=== PATIENT | female | born 1990 | race Caucasian/White ===

== ENCOUNTER 2017-10-16 13:54 | Emergency (ER) | payer BC, MEDICAID ==
--- NOTE | 2017-10-16 17:24 | ED ---
- HPI Summary HPI Summary: 27F LMP 6/5 presents with vaginal spotting and cramping today. She states that she has been having intermittent abd pain in the past week. She states that abd pain is getting worse. She noticed some spotting. She denies any abnormal vaginal discharge. No pain urination. No fevers. No nausea vomiting diarrhea or constipation. She is a history of 2 previous miscarriages. She is not able to get in with her OB till Sunday. She has no medical conditions. - History of Current Complaint Chief Complaint: EDOBProblems Stated Complaint: 10 WKS PREG/VAGINAL BLEEDING Time Seen by Provider: 10/16/17 17:07 Pain Intensity: 3 - Allergies/Home Medications Allergies/Adverse Reactions: Allergies Allergy/AdvReac Type Severity Reaction Status Date / Time Latex [Latex] Allergy Mild rash with Verified 07/18/12 13:09 contact per pt PMH/Surg Hx/FS Hx/Imm Hx Endocrine/Hematology History: Denies: Hx Diabetes, Hx Thyroid Disease Cardiovascular History: Denies: Hx Hypertension, Hx Pacemaker/ICD Respiratory History: Reports: Other Respiratory Problems/Disorders - sob started 07/17/12 had albuterol treatment at [facility] Denies: Hx Asthma, Hx Chronic Obstructive Pulmonary Disease (COPD) GI History: Denies: Hx Ulcer History: Denies: Hx Dialysis, Hx Renal Disease Sensory History: Denies: Hx Hearing Aid Psychiatric History: Denies: Hx Panic Disorder Infectious Disease History: No Infectious Disease History: Denies: Hx Hepatitis, Hx Human Immunodeficiency Virus (HIV), Traveled Outside the [place] in Last 30 Days - Family History Known Family History: Negative: Blood Disorder - Social History Alcohol Use: Daily Substance Use Type: Reports: None Smoking Status (MU): Light Every Day Tobacco Smoker Review of Systems Negative: Fever Negative: Chest Pain Negative: Shortness Of Breath Positive: Abdominal Pain, Other - vaginal discharge All Other Systems Reviewed And Are Negative: Yes Physical Exam - Physical Exam Triage Information Reviewed: Yes Vital Signs Reviewed: Yes Appearance: Positive: Well-Appearing Skin: Positive: Warm, Dry Head/Face: Positive: Normal Head/Face Inspection Eyes: Positive: Normal, Conjunctiva Clear ENT: Positive: Pharynx normal Respiratory/Lung Sounds: Positive: Clear to Auscultation, Breath Sounds Present Cardiovascular: Positive: Normal, RRR Abdomen Description: Positive: Nontender, Soft Bowel Sounds: Positive: Present Pelvic Exam: External Exam Normal, Speculum Exam Normal, Other - redness around cervix, os closed Musculoskeletal: Positive: Normal Neurological: Positive: Normal Psychiatric: Positive: Normal Diagnostics - Vital Signs Vital Signs Temp Pulse Resp BP Pulse Ox 10/16/17 16:33 97.9 F 74 16 102/64 100 10/16/17 14:01 97.9 F 90 16 125/83 98 - Laboratory Result Diagrams: 10/16/17 17:17 10/16/17 17:17 Lab Statement: Any lab studies that have been ordered have been reviewed, and results considered in the medical decision making process. - Ultrasound No standard instances Ultrasound Interpretation: Positive (See Comments) - IMPRESSION: 1. EARLY INTRAUTERINE WITH AN ESTIMATED GESTATIONAL AGE OF 6 WEEKS 1 DAY. RECOMMEND A FOLLOW-UP TRANSVAGINAL ULTRASOUND IN 1-2 WEEKS TIME TO ASSESS FOR VIABILITY. 2. 2.6 CM COMPLEX RIGHT OVARIAN CYST. Ultrasound Interpretation Completed By: Radiologist Course/Dx - Course Course Of Treatment: 27F LMP 08/28 presents with vaginal spotting and cramping today. She states that she has been having intermittent abd pain in the past week. She states that abd pain is getting worse. She noticed some spotting. She denies any abnormal vaginal discharge. No pain urination. No fevers. No nausea vomiting diarrhea or constipation. She is a history of 2 previous miscarriages. She is not able to get in with her OB till Sunday. She has no medical conditions. on exam nontender abd. normal pelvic exam, os closed. transvaginal u/s shows intrauterine at 6 weeks. right ovarian cyst. wbc normal. blood type B+. hcg 27,000. will have follow up with ob to follow . patient understand and agrees with plan. - Differential Diagnosis/HQI/PQRI: Spontaneous , Threatened , Intrauterine - Diagnoses Provider Diagnoses: Intrauterine , Vaginal bleeding during Discharge - Sign-Out/Discharge Documenting (check all that apply): Patient Departure - Discharge Plan Condition: Good Disposition: HOME Patient Education Materials: (ED) Referrals: Gamal Nicholas MD [Primary Care Provider] - Boris Arnold MD [Medical Doctor] - Additional Instructions: Follow up with OBGYN as will need repeat HCG level drawn to trend Return to ED if develop severe abdominal pain, fever, severe bleeding with symptoms such as lightheadedness or any new or worsening symptoms - Billing Disposition and Condition Condition: GOOD Disposition: Home
[2017-10-16 17:28] LABS: ABS Basophils 0 10^3/ul (0-0.2); ABS Eosinophils 0.1 10^3/ul (0-0.6); ABS Lymphocytes 1.8 10^3/ul (1.0-4.8); ABS Monocytes 0.5 10^3/ul (0-0.8); ABS Neutrophils 7.3 10^3/ul (1.5-7.7); ABS Nucleated RBC 0 10^3/ul; Eosinophil % 0.5 % (0-6); Hematocrit 41 % (35-47); Lymphocyte % 18.8 % (25-47); Mean Corpuscular HGB Conc 34 g/dl (31-36); Mean Corpuscular Hemoglobin 30 pg (27-31); Mean Corpuscular Volume 87 fL (80-97); Mean Platelet Volume 7.8 um3 (7.4-10.4); Nucleated Red Blood Cells % 0; Platelet Count 281 10^3/ul (150-450); Red Blood Count 4.75 10^6/ul (4.00-5.40); Red Cell Distribution Width 13 % (10.5-15); White Blood Count 9.7 10^3/ul (3.5-10.8)
--- NOTE | 2017-10-16 17:30 | RAD ---
INDICATION: Vaginal bleeding, . COMPARISON: There are no prior studies available for comparison. TECHNIQUE: Multiple real-time transvaginal images of the pelvis were obtained. FINDINGS: There appears to be an intrauterine gestational sac. A yolk sac is visualized. No pole or heartbeat is seen. The mean sac diameter measured 1.35 cm corresponding to an estimated gestational age of 6 weeks 1 day. The right ovary measured 4.7 x 3.0 x 3.5 cm. The left ovary measured 3.2 x 1.6 x 2.3 cm. There is vascular flow within both ovaries. There is a complex right ovarian cyst measuring 2.6 x 2.4 x 2.6 cm. There is a small amount of free intraperitoneal fluid in the cul-de-sac. IMPRESSION: 1. EARLY INTRAUTERINE WITH AN ESTIMATED GESTATIONAL AGE OF 6 WEEKS 1 DAY. RECOMMEND A FOLLOW-UP TRANSVAGINAL ULTRASOUND IN 1-2 WEEKS TIME TO ASSESS FOR VIABILITY. 2. 2.6 CM COMPLEX RIGHT OVARIAN CYST.
[2017-10-16 17:42] LABS: INR 0.91 (0.77-1.02)
[2017-10-16 17:57] LABS: EGFR Non-African American 117.7 (>60)
[2017-10-16 18:55] VITALS: BP 110/65
== END 2017-10-16 18:40 | disposition home or self-care (01) ==
LOC: ED 13:54
DX: O20.9 Hemorrhage in early pregnancy, unspecified (principal); Z3A.01 Less than 8 weeks gestation of pregnancy; N83.291 Other ovarian cyst, right side; Z91.040 Latex allergy status; F17.200 Nicotine dependence, unspecified, uncomplicated
CPT/HCPCS: 36415; 76817; 80053; 84702; 85025; 85610; 85730; 86900; 86901; 87480; 87491; 87510; 87591; 87661; 99282

== ENCOUNTER 2018-06-11 12:05 | Emergency (ER) | payer BC, MEDICAID ==
[2018-06-11 12:40] VITALS: BP 112/74
--- NOTE | 2018-06-11 12:41 | UC ---
Throat Pain/Nasal Dilan HPI - HPI Summary HPI Summary: 28 yo female presents with sinus pain/pressure/congestion for the last 2 weeks. She tells me that she is currently 39 weeks . She called her OBGYN and they told her to come to to get antibiotics. Pt has been taking OTC " safe sudafed" with no relief. She is scheduled to see her OB tomorrow for a check. Has had no fevers, chills, SOB, abdominal/pelvic pain, or vaginal bleeding. - History of Current Complaint Chief Complaint: UCRespiratory Stated Complaint: SINUS ISSUE Time Seen by Provider: 06/11/18 12:41 Hx Obtained From: Patient Hx Last Menstrual Period: currently menstruating Onset/Duration: Gradual Onset Severity: Moderate Pain Intensity: 6 Pain Scale Used: 0-10 Numeric - Allergies/Home Medications Allergies/Adverse Reactions: Allergies Allergy/AdvReac Type Severity Reaction Status Date / Time latex Allergy Rash Verified 06/11/18 12:40 Home Medications: Home Medications Pseudoephedrine HCl [Sudafed] 30 mg PO 06/11/18 [History] PMH/Surg Hx/FS Hx/Imm Hx - Additional Past Medical History Additional PMH: RA - Surgical History Surgical History: None - Family History Known Family History: Negative: Blood Disorder - Social History Lives: With Family Alcohol Use: None Substance Use Type: None Smoking Status (MU): Never Smoked Tobacco Review of Systems All Other Systems Reviewed And Are Negative: Yes Constitutional: Positive: Negative Skin: Positive: Negative Eyes: Positive: Negative ENT: Positive: Nasal Discharge, Sinus Congestion, Sinus Pain/Tenderness Respiratory: Positive: Negative Cardiovascular: Positive: Negative Gastrointestinal: Positive: Negative Genitourinary: Positive: Negative Neurovascular: Positive: Negative Neurological: Positive: Negative Psychological: Positive: Negative Physical Exam - Summary Physical Exam Summary: GENERAL: NAD. WDWN. No pain distress. SKIN: No rashes, sores, lesions, or open wounds. HEENT: Head: AT/NC Eyes: EOM intact. Conjunctiva clear without inflammation or discharge. Ears: Hearing grossly normal. TMs intact, no bulging, erythema, or edema. Nose: Nasal mucosa mildly swollen and erythematous with yellow/ clear discharge. TTP maxillary and frontal sinus. Positive post nasal drip Throat: Posterior oropharynx without exudates, erythema, or tonsillar enlargement. Uvula midline. NECK: Supple. Nontender. No lymphadenopathy. CHEST: CTAB. No r/r/w. No accessory muscle use. Breathing comfortably and in no distress. CV: RRR. Without m/r/g. Pulses intact. NEURO: Alert. PSYCH: Age appropriate behavior. Triage Information Reviewed: Yes Vital Signs: Initial Vital Signs Temp 97.4 F 06/11/18 12:33 Pulse 98 06/11/18 12:33 Resp 18 06/11/18 12:33 BP 112/74 06/11/18 12:33 Pulse Ox 100 06/11/18 12:33 Vital Signs Reviewed: Yes Throat Pain/Nasal Course/Dx - Course Course Of Treatment: Sinusitis - Differential Dx/Diagnosis Provider Diagnosis: Sinusitis Discharge - Sign-Out/Discharge Documenting (check all that apply): Patient Departure All imaging exams completed and their final reports reviewed: No Studies - Discharge Plan Condition: Stable Disposition: HOME Prescriptions: Amoxicillin PO (*) [Amoxicillin 875 MG (*)] 875 mg PO BID #14 tab Patient Education Materials: Sinusitis (ED) Referrals: Gamal Nicholas MD [Primary Care Provider] - Additional Instructions: If you develop a fever, shortness of breath, chest pain, new or worsening symptoms - please call your PCP or go to the ED. - Billing Disposition and Condition Condition: STABLE Disposition: Home
== END 2018-06-11 12:51 | disposition home or self-care (01) ==
LOC: UCEAST 12:05
DX: O99.513 Diseases of the respiratory system complicating pregnancy, third trimester (principal); J32.9 Chronic sinusitis, unspecified; Z91.040 Latex allergy status; Z3A.36 36 weeks gestation of pregnancy
CPT/HCPCS: 99212; G0463

== ENCOUNTER 2018-06-13 01:03 | Inpatient (IN) | payer BC, MEDICAID ==
--- NOTE | 2018-06-13 03:57 | PN ---
L&D Outpatient: Visit - Reproductive Information Estimated Due Date: 06/16/18 Gestational Age: 39 Weeks and 4 Days : 4 Para: 1 - Reason for Visit Visit Reason: Labor evaluation - Antepartal Records Antepartal Record: Reviewed, Uncomplicated - Patient History Patient History Significant: Yes Patient History Significant For: Spastic bladder Rheumatoid Arthritis Review of Systems Constitutional: Uncomfortable CV Complaint: No Respiratory: Shortness of Breath: No Gastrointestinal: No Nausea/Vomiting Genitourinary: No Dysuria, No Leaking Fluid, Spotting Musculoskeletal: Contractions Neurological: No Headache, No Visual Changes Movement: Normal L&D Outpatient: Exam Vitals - Most Recent: Temp 97.7, HR 107, RR 16, BP 113/77, O2 99 - Cervical Exam Cervical Exam: On admission: 1-2/80%/-2, vtx Repeat 2 hours: no change Repeat 4 hours: no change - Abdominal Exam Abdomen Exam: Non-Tender, Fundal Height Consistent with Dates - Membranes Membrane Status: Intact - Ultrasound/Biophysical Profile Ultrasound Status: Not Done EFM Findings - External Monitor Findings Baseline Heart Rate: 135 External Monitor Findings: Accelerations Present, No Pattern of Variable or Late Decelerations, Variability Moderate External Monitor Findings Comment: No evidence of metabolic acidemia Contractions: Irregular, 45-90 Seconds - q5-6 mins L&D Outpatient: Asses/Plan Assessment: IUP@39+4 early vs. false labor GBS negative Membrane sweep in office, intercourse on Sunday No cervical change since check in office Regular contractions, palpate mild-moderate, good resting tone, pt breathing with contractions No evidence of metabolic acidemia Plan: Admit as Inpatient - IV pain medication now; augment/IOL to follow
[2018-06-13] MEDS ORDERED: Lactated Ringers 1000 ML Bag* 1,000 ML IV ONE ×2 (06:41→14:21)
[2018-06-13] MEDS ORDERED: Promethazine INJ(RESTRICTED)* 25 MG/ML 1 ML VIAL IV ONE (06:41)
[2018-06-13] MEDS ORDERED: Nalbuphine* 10 MG/ML 1 ML VIAL IV ONE (06:41)
[2018-06-13] MEDS ORDERED: Buffered Lidocaine 1% SYRIN* 1 ML/SYRINGE INTRADERM ONE (06:41)
--- NOTE | 2018-06-13 06:52 | HP ---
General Information - Reason for Visit IUP@39+4 admitted for augmentation/IOL - General Information Maternal Age: 28 Grav: 4 Para: 1 SAB: 2 IEA: 0 Estimated Due Date: 06/16/18 Determined By: Early Ultrasound Gestational Age in Weeks/Days: 39+4 Maternal Blood Type and Rh: B Positive - Results this Serology/RPR Result: Non-Reactive Rubella Result: Immune HBsAg Result: Negative HIV Result: Negative GBS Culture Result: Negative Past Medical History Delivery History: Hx Uncomplicated Vaginal Delivery, See Records Delivery History Comment: G1: , induction for postdates, labor 5.5 hrs, pushed 10 mins, 2nd degree lac Pertinent Past Medical History: See Records - Spastic bladder, rheumatoid arthritis, recent sinus infection Pertinent Past Surgical History: None Pertinent Family History: See Records Family History Comment: Father: HTN, sleep apnea, obesity Mother: A&W Brother: juvenile diabetes MGM: breast cancer dx at 44 - Antepartal Records Antepartal Records: Reviewed, Complicated by: - RA flare, sinus infection Review of Systems Constitutional: Uncomfortable CV Complaint: No Respiratory: Shortness of Breath: No Gastrointestinal: No Nausea/Vomiting Genitourinary: No Dysuria, No Leaking Fluid, Spotting Musculoskeletal: Contractions Neurological: No Headache, No Visual Changes Movement: Normal Exam Allergies/Adverse Reactions: Allergies latex Allergy (Verified 06/11/18 12:40) Rash Temp 97.7, HR 1107, RR 16, BP 113/77, O2 99% - Measurements Height: 5 ft 7 in Weight: 201 lb Weight in lbs: 201.147945 Body Mass Index (BMI): 31.4 Pre- Weight: 167 lb Weight Gained This : 34 lbs and 0 ozs - Exam Breast: Breast Exam Deferred CVA: No CVA Tenderness Extremities: No Edema Heart: Normal Rhythm/Heart Sounds HEENT: No Significant Findings Lungs: Clear Bilaterally Rectal: Rectal Exam Deferred Reflexes: DTR 2+ Targeted Exam Findings See L&D Outpatient Visit Provider Note for Findings: Yes Estimated Weight: 7lbs Cervical Exam: 1cm, 2cm Effacement: 80% Station: -2 Presenting Part: Vertex Membrane Status: Intact Bleeding/Discharge: Bloody Show EFM Findings - External Monitor Findings Baseline Heart Rate: 130 External Monitor Findings: Accelerations Present, No Pattern of Variable or Late Decelerations, Variability Moderate External Monitor Findings Comment: No evidence of metabolic acidemia Contractions: Regular, Mild, Moderate, 45-90 Seconds - Q3-5 Assessment/Plan - Assessment IUP@39+4 admitted for augmentation/IOL GBS negative No evidence of metabolic acidemia Regular contractions, pt coping well, good resting tone IBOW anticipate progression to active labor - Plan Plan: Induction, Admit - Anticipate Vaginal Delivery Plan Comment: Admit to L&D IV pain meds now to promote rest Augmentation/IOL to follow VE PRN - Date/Time of Admission Date of Admission: 06/13/18 Time of Admission: 06:45
[2018-06-13] MEDS ORDERED: Lactated Ringers 1000 ML Bag* 1,000 ML IV SCH ×3 (07:00→21:00)
[2018-06-13 07:20] LABS: ABS Basophils 0 10^3/ul (0-0.2); ABS Eosinophils 0.1 10^3/ul (0-0.6); ABS Lymphocytes 1.4 10^3/ul (1.0-4.8); ABS Monocytes 0.6 10^3/ul (0-0.8); ABS Nucleated RBC 0 10^3/ul; Eosinophil % 0.7 %; Hematocrit 40 % (33-41); Hemoglobin 12.9 g/dL (12.0-16.0); Lymphocyte % 14.2 %; Mean Corpuscular HGB Conc 33 g/dL (31-36); Mean Corpuscular Hemoglobin 28 pg (27-31); Mean Corpuscular Volume 85 fL (80-97); Mean Platelet Volume 8.7 fL (7.4-10.4); Nucleated Red Blood Cells % 0; Platelet Count 261 10^3/uL (150-450); Red Blood Count 4.69 10^6 /uL (3.70-4.87); Red Cell Distribution Width 14 % (10.5-15); White Blood Count 10.1 10^3/uL (3.5-10.8)
[2018-06-13] MEDS ORDERED: Oxytocin in LR* 20 UNITS/1,000 ML BAG IVPB ONE (08:45)
[2018-06-13] MEDS ORDERED: Oxytocin in LR* 20 UNITS/1,000 ML BAG IVPB SCH ×2 (09:00→20:18)
--- NOTE | 2018-06-13 10:27 | PN ---
Progress Note - Progress Note Date of Service: 06/13/18 Note: contractions every 3-4 minutes, moderate in intensity Cervix: 3-4 cm/90%, vtx -1 AROM, mec stained fluid
--- NOTE | 2018-06-13 12:55 | PN ---
Progress Note - Progress Note Date of Service: 06/13/18 Note: uncomfortable, contractions every 3 min Cervix: 4-5 cm, 90%, vtx -1 Declines analgesia at this time Will hold pitocin at current level
[2018-06-13] MEDS ORDERED: OBEPIDURAL* 250 ML EPIDURAL ONE (13:41)
[2018-06-13] MEDS ORDERED: Sodium Citrate/Citric Acid* 15 ML UDC PO PRN (14:21)
[2018-06-13] MEDS ORDERED: Phenylephrine 40 MCG/ML SYRINGE IV PUSH PRN ×2 (14:21)
[2018-06-13] MEDS ORDERED: OBEPIDURAL* 250 ML EPIDURAL SCH (15:00)
--- NOTE | 2018-06-13 16:38 | PN ---
Progress Note - Progress Note Date of Service: 06/13/18 Note: comfortable after epidural now has shakiness Cervix: 6-7cm, 80%, vtx -1 Will continue pitocin
--- NOTE | 2018-06-13 18:33 | PN ---
Progress Note - Progress Note Date of Service: 06/13/18 Note: Starting to feel pressure Cervix: 85, vtx 0 OK to self bolus epidural. Will await full dilation and urge to push
[2018-06-13] MEDS ORDERED: Dibucaine 1% 28.35 GM TUBE PR PRN (20:13)
[2018-06-13] MEDS ORDERED: Misoprostol TAB* 200 MCG PR ONE (20:13)
[2018-06-13] MEDS ORDERED: Witch Hazel PAD* JAR TOPICAL PRN (20:13)
[2018-06-13] MEDS ORDERED: Glycerin ADULT SUPP PR PRN (20:13)
[2018-06-13] MEDS ORDERED: Ondansetron INJ* 2 MG/ML VIAL IV PRN (20:19)
[2018-06-13] MEDS ORDERED: Ondansetron INJ* 2 MG/ML VIAL ONE (20:20)
[2018-06-13] MEDS: Ibuprofen TAB* 600 MG PO PRN (21:13)
--- NOTE | 2018-06-13 21:23 | PROCNOTE ---
[facility] OB: Delivery Note - Delivery A Date of : 06/13/18 Time of : 19:35 [place] Sex: Female Score 1 Minute: 9 Score 5 Minutes: 10 Gestational Age in Weeks and Days at Delivery: 39 Weeks and 4 Days Delivery Method: Spontaneous Vaginal Labor: Spontaneous - augmentation for prodromal labor Did Patient attempt ?: N/A, No Previous Amniotic Fluid: Meconium Estimated Blood Loss: 300 Anesthesia/Analgesia: CEI for Labor Anesthesia Comment: Dr. Skinner Delivered By: Dedra Delatorre - Nursery Level of Nursery: Regular/Bedside - Perineum Perineal Injury: Perineal Laceration, 1st Degree Perineal Injury Comment: 3-0 ccg Perineal Repair: By Delivering Practioner - Events Delivery Events of Note: Pitocin During Labor, Post- Bleeding - Meds Given - Additional Delivery Notes Additional Delivery Notes: Fully dilated at 1930, pushed 5 min. SVB LFC, OA over 1st deg perineal lac. Infant pink with stimulation. Placenta Fontenot. Uterine atony controlled with massage, IV with pitocin, Cytotec 800mcg per rectum. EBL 300cc
[2018-06-14] MEDS: Acetaminophen TAB* 325 MG PO PRN (01:40)
[2018-06-14] MEDS: Ibuprofen TAB* 600 MG PO PRN ×3 (03:43→16:16)
[2018-06-14 07:51] LABS: Hematocrit 33 % (33-41); Hemoglobin 11.1 g/dL (12.0-16.0); Mean Corpuscular HGB Conc 34 g/dL (31-36); Mean Corpuscular Hemoglobin 28 pg (27-31); Mean Corpuscular Volume 83 fL (80-97); Mean Platelet Volume 8.5 fL (7.4-10.4); Platelet Count 220 10^3/uL (150-450); Red Cell Distribution Width 13 % (10.5-15); White Blood Count 9.3 10^3/uL (3.5-10.8)
[2018-06-14] MEDS ORDERED: Ferrous Gluconate TAB* 324 MG TAB PO SCH (09:00)
[2018-06-14] MEDS: Docusate CAP* 100 MG PO SCH ×3 (10:45→22:18)
[2018-06-15] MEDS: Acetaminophen TAB* 325 MG PO PRN (01:51)
[2018-06-15 08:30] VITALS: BP 110/85
[2018-06-15] MEDS: Docusate CAP* 100 MG PO SCH (10:50)
== END 2018-06-15 11:05 | disposition home or self-care (01) | DRG 560 ==
LOC: MCHOBOUT 01:03 → MCHOB 06:32
PROVIDERS: ADMIT Advanced Practice Midwife; ATTEND Advanced Practice Midwife
PROC: 10E0XZZ Delivery of Products of Conception, External Approach (ICD-10-PCS; principal; 2018-06-13)
PROC: 10907ZC Drainage of Amniotic Fluid, Therapeutic from Products of Conception, Via Natural or Artificial Opening (ICD-10-PCS; 2018-06-13)
PROC: 0HQ9XZZ Repair Perineum Skin, External Approach (ICD-10-PCS; 2018-06-13)
DX: O77.0 Labor and delivery complicated by meconium in amniotic fluid (principal); Z37.0 Single live birth; O70.0 First degree perineal laceration during delivery; Z3A.39 39 weeks gestation of pregnancy
CPT/HCPCS: 36415; 85025; 85027; 86850; 86900; 86901; A9270-GY; J2405

== ENCOUNTER 2018-08-12 20:12 | Emergency (ER) | payer MEDICAID ==
[2018-08-12] MEDS ORDERED: Lidocaine 2% PF * 5 ML VIAL INJ ONE (20:18)
--- NOTE | 2018-08-12 20:18 | UC ---
Laceration HPI - HPI Summary HPI Summary: 28-year-old female who accidentally put her left hand through the glass part of a door she was opening it causing 2 lacerations to her left hand. - History Of Current Complaint Stated Complaint: WRIST LAC Time Seen by Provider: 08/12/18 20:16 Hx Obtained From: Patient Hx Last Menstrual Period: currently menstruating Laceration Location: Hand Mechanism Of Injury: Sharp Trauma Onset/Duration: Sudden Onset Severity: Moderate Aggravating Factors: Movement - Allergies/Home Medications Allergies/Adverse Reactions: Allergies Allergy/AdvReac Type Severity Reaction Status Date / Time latex Allergy Rash Verified 08/12/18 20:20 Home Medications: Home Medications NK [No Home Medications Reported] 08/12/18 [History Confirmed 08/12/18] PMH/Surg Hx/FS Hx/Imm Hx Previously Healthy: Yes - Surgical History Surgical History: None - Family History Known Family History: Negative: Blood Disorder - Social History Alcohol Use: None Substance Use Type: None Smoking Status (MU): Never Smoked Tobacco Review of Systems All Other Systems Reviewed And Are Negative: Yes Skin: Positive: Other - 2.0 cm V-shaped laceration to the left wrist, small 0.5 cm V-shaped laceration proximal to that, 1 superficial scratch to the left thumb. Musculoskeletal: Positive: Decreased ROM - Patient is unable to abduct left thumb Neurological: Positive: Numbness Is Patient Immunocompromised?: No Physical Exam Triage Information Reviewed: Yes Appearance: Well-Appearing, No Pain Distress, Well-Nourished Vital Signs Reviewed: Yes Musculoskeletal: Positive: Other: - Good strength with flexion extension against resistance. Patient is unable to abduct the left thumb, she has decreased neuro sensation to that area however color is good and skin is warm to touch. Neurological: Positive: Alert, Muscle Tone Normal Skin: Positive: Other - Patient has approximately 10 superficial very small scratches to the left palm measuring approximately 2 mm in length no foreign bodies present. She has an approximate 1.0 cm superficial scratch to the left thumb. She has an approximate 2.0 cm V-shaped laceration to the palmar aspect of the left wrist with a lacerated abductor pollicis longus tendon present. She has an approximately 1.0 cm V-shaped laceration approximately 5.0 cm proximal to the larger laceration. Laceration Repair - Laceration Repair 1 Description: Linear - V-shaped laceration left wrist with the abductor pollicis longus tendon lacerated and visible Laceration Size After Repair: Length (cm) - 2.0 cm V-shaped laceration left wrist with ulcerated tendon visible. Type Injection: Local Anesthesia Used: 2.0% Lido Cleansing Completed Via Routine Prep: Yes Irrigation With Pressure Irrigation Device: Yes Closure Material: Sutures - After discussion with Dr. Coles, orthopedist, the larger laceration with the lacerated tendon was closed using 5-0 Ethilon sutures placed numbered 4. Closure Method: Single Layer Suture Of: SQ Suture Type: Nylon 2 Description: Linear - Approximate 1.0 cm V-shaped laceration that is proximal to the larger laceration. Laceration Size After Repair: Length (cm) - 1.0 cm. Modified For Repair: No Type Injection: Local Anesthesia Used: 2.0% Lido Cleansing Completed Via Routine Prep: Yes Irrigation With Pressure Irrigation Device: Yes Closure Material: Sutures Closure Method: Single Layer Suture Of: Skin Suture Type: Nylon - Sutures placed #3 using 5-0 Ethilon 3 Description: Linear Laceration Size After Repair: Length (cm) - 1.5 cm superficial laceration to the plantar surface of the left thumb non-gaping. Modified For Repair: No Cleansing Completed Via Routine Prep: Yes Irrigation With Pressure Irrigation Device: No Closure Material: Skin Adhesive Closure Method: Single Layer Suture Of: Skin Laceration Course/Dx - Course/Dx Course Of Treatment: This 28-year-old female lacerated her left abductor pollicis longus. After discussion with Dr. Munguia and Dr. Coles, the wound was closed and patient is to follow-up at Dr. Coles office in the morning for probable tendon repair. The other laceration proximal to that was sutured and the superficial laceration to the thumb was not gaping but I repaired that using skin adhesive. The patient tolerated procedure well. Dry sterile bulky dressing was applied. She is to elevate as much as possible and may take Tylenol for pain. - Diagnosis Provider Diagnosis: Laceration of tendon of left wrist, Laceration of left forearm, Laceration of left thumb Discharge - Sign-Out/Discharge Documenting (check all that apply): Patient Departure All imaging exams completed and their final reports reviewed: No - Discharge Plan Condition: Fair Disposition: HOME Patient Education Materials: Tendon Laceration (ED) Referrals: Gamal Nicholas MD [Primary Care Provider] - Dominic Coles MD [Medical Doctor] - Additional Instructions: Keep the dressing on tonight, elevate as much as possible. You are to call Dr. Coles office in the morning and he expects to see you tomorrow morning. The 3 sutures in the smaller laceration should be removed in approximate 7-10 days. Watch for signs of infection such as hot, red, tender, red streaks or pus drainage and follow-up with your primary care provider if that happens. - Billing Disposition and Condition Condition: FAIR Disposition: Home
[2018-08-12 20:20] VITALS: BP 116/82
--- NOTE | 2018-08-13 11:27 | UC ---
- Progress Note Progress Note: Patient Name: KALIE JUNG Medical Record#: [id number] Ordering Physician: Lisa Kulkarni NP Acct.#: [id number] : 1990 Age: 28 Sex: F Location: [facility] Exam Date: 08/12/182018 ADM Status: DEP ER Order Information: WRIST LEFT 2 VWS Accession Number: [id number] CPT: 46175 INDICATION: Laceration anterior aspect LEFT wrist. Pain and edema. Assess for retained glass foreign body. COMPARISON: October 23, 2008 TECHNIQUE: AP and lateral views LEFT wrist. REPORT AND IMPRESSION: #. Volar metallic marker at the level of the wrist indicates the site of clinical concern. Soft tissue swelling and probable subcutaneous emphysema noted at the distal forearm to wrist. No conspicuous foreign body evident. Negative for fracture or malalignment. R0 Preliminary Imaging Read R0 <Electronically signed by Mark Lopez MD in OV> 08/13/18 1120 Dictated By: Mark Lopez MD Dictated Date/Time: 08/13/18 1120 Transcribed Date/Time: 08/13/18 2393 Copy to: CC:Lisa Kulkarni NP; Gamal Nicholas MD; Gray Munguia MD Imaging - [facility] Imaging - [facility] [address] [place] [address] ph ([phone]) ph ([phone]) ph ([phone]) This report is only to be considered final once signed by the Provider(s) as displayed in the "<Electronically Signed by >" field (s). Absence of a signature indicates the report is in a draft status and still needs to be finalized. In the event this document was created by someone other than the signing Provider, the individual initiating the document will be listed in the "Entered by:" or "Dictated by:" [place]. 1 of 1 Course/Dx - Diagnoses Provider Diagnoses: Laceration of tendon of left wrist, Laceration of left forearm, Laceration of left thumb Discharge - Sign-Out/Discharge Documenting (check all that apply): Post-Discharge Follow Up All imaging exams completed and their final reports reviewed: Yes - Discharge Plan Condition: Fair Disposition: HOME Patient Education Materials: Tendon Laceration (ED) Referrals: Gamal Nicholas MD [Primary Care Provider] - Dominic Coles MD [Medical Doctor] - Additional Instructions: Keep the dressing on tonight, elevate as much as possible. You are to call Dr. Coles office in the morning and he expects to see you tomorrow morning. The 3 sutures in the smaller laceration should be removed in approximate 7-10 days. Watch for signs of infection such as hot, red, tender, red streaks or pus drainage and follow-up with your primary care provider if that happens. - Billing Disposition and Condition Condition: FAIR Disposition: Home
== END 2018-08-12 21:30 | disposition home or self-care (01) ==
LOC: UCEAST 20:12
DX: S66.922A Laceration of unspecified muscle, fascia and tendon at wrist and hand level, left hand, initial encounter (principal); S51.812A Laceration without foreign body of left forearm, initial encounter; S61.012A Laceration without foreign body of left thumb without damage to nail, initial encounter; W22.8XXA Striking against or struck by other objects, initial encounter; Y92.9 Unspecified place or not applicable; Z91.040 Latex allergy status
CPT/HCPCS: 12002; 12031; 12032; 99211; G0463

== ENCOUNTER 2018-08-15 13:03 | Day surgery (SDC) | payer MEDICAID, OTHER ==
[~2018-08-15 13:03] MED LIST: Buffered Lidocaine 1% SYRIN* 1 ML/SYRINGE INTRADERM ONE; Dexamethasone TAB* 4 MG PO ONE; DiMENhydriNATE IV* 50 MG/ML VIAL IV PUSH PRN; Famotidine IV* 10 MG/ML 2 ML (20 mg) IV ONE; Lactated Ringers 1000 ML Bag* 1,000 ML IV SCH; Morphine 4 MG/ML VIAL (1 ml) 4 MG/ML VIAL IV PRN; Naloxone* 0.4 MG/ML 1 ML VIAL IV PRN; Ondansetron TAB* 4 MG PO ONE; PROCHLORPERAZINE INJ 5 MG/ML 2 ML VIAL IV PRN; Scopolamine 1.5 mg* PATCH TRANSDERM PRN; fentaNYL* 50 MCG/ML 2 ML VIAL (100 MCG VIAL) IV PRN; oxyCODONE/Acetamin 5/325 MG* TAB PO PRN
[2018-08-15] MEDS ORDERED: Famotidine IV* 10 MG/ML 2 ML (20 mg) ONE (13:07)
[2018-08-15] MEDS ORDERED: Dexamethasone TAB* 4 MG ONE (13:07)
[2018-08-15] MEDS ORDERED: Buffered Lidocaine 1% SYRIN* 1 ML/SYRINGE INTRADERM ONE (13:07)
[2018-08-15] MEDS ORDERED: ceFAZolin 2 GM PREMIX in ORs 2 GM/50 ML BAG IVPB ONE (13:07)
[2018-08-15] MEDS ORDERED: Ondansetron ODT TAB* 4 MG ONE (13:07)
[2018-08-15] MEDS ORDERED: fentaNYL* 50 MCG/ML 2 ML VIAL (100 MCG VIAL) ONE ×3 (17:02→22:05)
[2018-08-15] MEDS ORDERED: KETAMINE HCL* 50 MG/ML 10 ML VIAL ONE (17:02)
[2018-08-15] MEDS ORDERED: Midazolam* 1 MG/ML 5 ML VIAL (5 MG) ONE (17:02)
[2018-08-15] MEDS ORDERED: Bupivacaine 0.25% SDV PF* 10 ML VIAL INJ ONE (17:46)
[2018-08-15] MEDS ORDERED: Propofol* 10 MG/ML 20 ML BTL ONE (18:32)
[2018-08-15] MEDS ORDERED: Ketorolac INJ* 30 MG/ML 1 ML VIAL ONE (18:32)
[2018-08-15] MEDS ORDERED: Ondansetron INJ* 2 MG/ML VIAL ONE (18:32)
[2018-08-15] MEDS ORDERED: Dexamethasone IV* 4 MG/ML 1 ML (4 MG) ONE (18:32)
[2018-08-15] MEDS ORDERED: Acetaminophen IV 1GM/100ML * 100 ML ONE (20:52)
[2018-08-15] MEDS ORDERED: PROCHLORPERAZINE INJ 5 MG/ML 2 ML VIAL ONE (20:54)
[2018-08-15] MEDS ORDERED: oxyCODONE TAB* 5 MG TAB ONE (22:05)
[2018-08-15 22:48] VITALS: BP 119/79
--- NOTE | 2018-08-15 23:01 | OP ---
DATE OF OPERATION: 08/15/18 - [facility] DATE OF : [birth year] SURGEON: Dominic Coles MD DISASTER DIRECTOR: KIM Larson ANESTHESIOLOGIST: Dr. Dukes. ANESTHESIA: General. PRE-OP DIAGNOSES: 1. Left wrist partial median nerve laceration. 2. Left palmaris longus tendon laceration. POST-OP DIAGNOSES: 1. Left wrist partial median nerve laceration. 2. Left palmaris longus tendon laceration. OPERATIVE PROCEDURE: 1. Exploration of penetrating left forearm glass wound. 2. Repair of the left median nerve partial laceration with group fascicular repair. Please note that this was much more difficult than a typical median nerve repair utilizing a nerve connector as it was a partial laceration. This required extensive intraneural dissection under the microscope proximally and distally in order to identify and preserve the intact fascicles. This took substantially longer and was substantially more difficult than a typical nerve repair. 3. Excision of left palmaris longus tendon. 4. Closure of traumatic wound measuring 5 cm. 5. Use of the operating room microscope. INDICATIONS: Kelly is 28 years old. She had a partial median nerve laceration on Sunday. She presented to my office a day or two ago and presents for surgery tonight. She understands that even with surgery, she may get a poor result. She understands that it will take several months for the nerve to attempt to heal itself. She would like to proceed. ESTIMATED BLOOD LOSS: 5 mL. COMPLICATIONS: None. FINDINGS: See above and below. DESCRIPTION OF PROCEDURE: Kelly was seen in the preoperative holding area. The correct side, site, and procedure were identified. We came back to the operating room where the arm was prepped and draped in the usual fashion and the time-out was performed. She was positioned supine with the use of the arm board. I began by taking her more distal transverse wound across the wrist in Maged type fashion ulnarly and then down along the carpal tunnel. Proximally, I extended the wound until it joined with the second wound which is a longitudinal 2 to 3 cm wound over the ulnar volar forearm. Dissection was carried down through he fascia. The lacerated palmaris longus tendon was identified. I excised portion of the tendon distally and then I excised 7 to 8 cm of the tendon proximally. This was handed off as a specimen. I then released the entirety of the carpal tunnel to expose the median nerve. Median nerve was exposed proximally. Right underneath where the palmaris longus tendon was lacerated, there was a high grade partial median nerve laceration. Deep to that, all of the tendons looked intact. I explored. She had had some FPL weakness and soreness preoperatively, however, was flexing. I did explore the tendon. It was intact. I then performed dissection through the mesoneurium and was able to get to background underneath the median nerve. I brought in the operating room microscope. I released the epineurium along the portion of the partial laceration. There was a large superior and radial fascicle or two that were completely lacerated. Deep to those, there were couple of partial fascicular lacerations. I went ahead and mobilized the larger fascicles proximally and distally through the perineurium until I had mobility on both sides. I went ahead and used a sterile tongue depressor and an 11 blade and excised a millimeter of nerve on either side. At this point, my gap was about 4 mm. Deep to that, again there was a couple of fascicles that were partially lacerated. I opened up an Axoguard 2 mm nerve connector and split this longitudinally to convert into a nerve wrap. I then took those couple of fascicles that were partially lacerated and I wrapped them in the 2 mm wrap. The wrap was tacked down on either end with a 9-0 nylon suture. This was all done under the operating room microscope at maximum magnification. After I had repaired those couple of fascicles with the conduit, I turned my attention to the much larger portions of the nerve that had been lacerated. It was looking very clean and ready for a repair at this point. I brought in a 3 x 15 mm Axoguard nerve connector. I first docked the proximal portion of the nerve into the connector. I then measured and cut the distal end of my connector to the appropriate length. I then used another 9-0 mattress suture to dock the distal end of my nerve into the connector. When I was done, this left a gap of 3 mm. At this point, I was very pleased with the group fascicular repair and I had performed an intraneural dissection such as all of the fascicles that were not injured were preserved. The last thing I did was take a 10 x 40 mm Axoguard nerve protector and I cut this to the appropriate size and then I used this as a nerve wrap to cover the entire portion of the injured nerve as well as a centimeter or two proximally and distally. This was secured with three 9-0 nylon sutures, 1 in either end and 1 in the middle. The microscope was removed. I irrigated out the wound. Everything was looking was looking very good. I did explore the ulnar nerve as she had just a little bit of weakness in the ulnar innervated intrinsics, however, I did not know it was due to her pain from the median nerve laceration. The ulnar nerve was completely intact. This was the ulnar artery. Again, all the deep flexor tendons looked intact. The wound was irrigated out. Skin was closed with 4-0 nylon suture. 0.25% plain Marcaine was infiltrated around the operative area. Wound was dressed with Xeroform, 4x4's, sterile Webril, and a wrist splint with the wrist in gentle flexion was applied using both volar and dorsal plaster slabs. Tourniquet was deflated during the splint placement. The hand pinked up immediately. She was taken to recovery room in stable condition. [id number]/[facility] #: [id number] JULIANNE
[2018-08-18] MEDS ORDERED: Scopolamine PATCH Remove* 1 NOTE MISC PATCH OFF ONE (06:02)
== END 2018-08-15 22:51 | disposition home or self-care (01) ==
LOC: OR 13:03
PROVIDERS: ATTEND Orthopaedic Surgery Hand Surgery
DX: S64.12XA Injury of median nerve at wrist and hand level of left arm, initial encounter (principal); S66.022A Laceration of long flexor muscle, fascia and tendon of left thumb at wrist and hand level, initial encounter; W25.XXXA Contact with sharp glass, initial encounter; Y92.9 Unspecified place or not applicable
CPT/HCPCS: 81025; 88304; A9270-GY; C1713; C1763; J0690; J0780; J1100; J1885; J2250; J2405; J2704; J3010; J3490; J8540